=== PATIENT | female | born 1985 | race African-American/Black ===

== ENCOUNTER 2017-04-09 06:04 | Inpatient (IN) ==
[2017-04-09] MEDS ORDERED: FAMOTIDINE 20 MG/2 ML VIAL IV ONE (06:22)
[2017-04-09] MEDS ORDERED: ceFAZolin 2,000 MG in PREMIX 1 EACH IV ONE (06:22)
[2017-04-09] MEDS ORDERED: CITRIC ACID/SODIUM CITRATE 30 ML UDCUP PO ONE (06:22)
[2017-04-09] MEDS: LACTATED RINGERS 1,000 ML IV SCH ×5 (06:37→23:30)
[2017-04-09 07:03] LABS: Basophils % 0.3 % (0.0-0.8); Eosinophils # 0.1 10*3/uL (0.0-0.87); Eosinophils % 0.8 % (0.00-10.9); Hematocrit 31.2 VOL% (35.7-47.0); Hemoglobin 10.8 GM/DL (12.0-16.0); Immature Granulocytes % 0.5 %; Immature Granulocytes Absolute 0.04 #; Lymphocytes # 1.9 10*3/uL (1.4-4.0); Lymphocytes % 23.7 % (21.3-54.2); Mean Corpuscular HGB Conc 34.6 GM/DL (32-36); Mean Corpuscular Hemoglobin 34 PG (27-34); Mean Platelet Volume 10.5 FL (9.6-12.0); Monocytes # 0.8 10*3/uL (0.11-0.8); Monocytes % 10.6 % (1.7-12.7); Neutrophils # 5.1 10*3/uL (1.4-7.4); Neutrophils % 64.1 % (38.7-73.9); Platelet Count 289 T/CUMM (130-400); Red Blood Count 3.15 MC/CUMM (3.8-5.5); Red Cell Distribution Width 13.7 % (9.3-17.3); White Blood Count 7.9 T/CUMM (4-12)
[2017-04-09] MEDS ORDERED: OXYTOCIN 10 UNIT/ML VIAL IM PRN (07:33)
[2017-04-09] MEDS ORDERED: OXYTOCIN/LR 30 UNIT/1,000 ML BAG IV PRN (07:33)
[2017-04-09 07:41] LABS: Alanine Aminotransferase 27 U/L (13-56); Albumin 2.8 G/DL (3.4-5.0); Alkaline Phosphatase 148 U/L (45-117); Aspartate Amino Transferase 27 U/L (0-37); Bilirubin,Total < 0.39 MG/DL (0.2-1.0); Blood Urea Nitrogen 8 MG/DL (7-18); Calcium 8.5 MG/DL (8.5-10.1); Glucose 74 MG/DL (74-106); Osmolality,Calculated 271.7 MOS/KG (273-304); Potassium 3.7 MMOL/L (3.5-5.1); Sodium 138 MMOL/L (136-145)
[2017-04-09] MEDS ORDERED: OXYTOCIN/LR 20 UNIT/1,000 ML BAG IV ONE ×2 (08:09→10:20)
--- NOTE | 2017-04-09 08:25 | OB/GYN History & Physical ---
History of Present Illness Chief complaint: In for repeat section due to previous 2 History of present illness: Ms. Kelly is a 31 year old female 3 para 2 living 2. Her SALLY is 2016 for an estimated gestational age of 39 weeks and 1 day. She presents to the labor department for elective repeat section due to previous section 2 the risk and benefits have been thoroughly discussed with this patient and significant other, plan of care has been discussed with Dr. Robbins and all parties are in agreement plan. The patient received her care through the [facility] and she received routine care, her course was uneventful. labs: She is O+, rubella is immune , RPR is nonreactive, hepatitis B negative, HIV negative, and GBS culture negative. Review of systems is negative with exception of previous section 2. Home Medications Medication Instructions Recorded Confirmed Type Omeprazole [Omeprazole] 20 mg PO DAILY 04/13/15 04/09/17 History Loratadine [Claritin] 10 mg PO DAILY #30 tab.rapdis 11/13/15 04/09/17 Rx Allergies Allergy/AdvReac Type Severity Reaction Status Date / Time No Known Allergies Allergy Verified 11/13/15 10:43 12 point system: reviewed and no additional remarkable complaints except as stated Medical,Surgical,& Family Hx - Medical History Neurology: History of: Migraine No history of: Brain Aneurysm, Cerebral Hemorrhage, Cerebrovascular Accident , Cerebral Palsy, Dementia, Multiple Sclerosis, Parkinson's Disease, Peripheral Neuropathy, Seizures, TIA, Vertigo, Neurologocal Cancer Gastrointestinal: No history of: Bowel Obstruction, Clostridium Difficile, Crohn's Disease, Diverticulitis/ Diverticulosis, Esophageal Varices, GERD, Gastrointestinal Bleed , Hemorrhoids, Hematochezia, Hepatitis, Liver Problems, Pancreatitis, Polyps, Ulcerative Colitis, GI Problems Reproductive: History of: Abnormal Pap Smear No history of: Breast Cancer, Endometriosis, Ectopic , Ovarian Cysts , Complication, Sexually Transmitted Disorders, Reproductive Cancer, Reproductive Problems Other: History of: Miscellaneous Medical Problems (intrauterine ) - Surgical History Neurologic Surgeries: Patient denies: Brain Aneurysm, Cerebral Hemorrhage, Neurologic Surgery Abdominal Surgeries: Surgical HX of: Hernia Repair (umbilical hernia repair age 15) Patient denies: Abdominal Surgery, Appendectomy, Cholecystectomy, Colonoscopy , Gastric Bypass Surgery, EGD Reproductive Surgeries: Surgical HX of;: Section (2010), Gynecologic Surgery Patient denies;: Breast Surgery, Dilation and Curettage, Hysterectomy, Tubal Ligation - Family History Family History: Reports;: Family Cancer (mom and dad), Family Diabetes ( grandmother) Denies;: Family Anesthesia Reaction, Family Heart Disease, Family Hematology , Family Hypertension, Family Psychiatric Problems, Family Stroke, Additional Family History - Social History Smoking Status: Current some day smoker Frequency of Alcohol Use: None Type of Drug Use: Marijuana Marital Status: Single Lives With:: Significant Other Functional capacity: independent ambulation 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 General appearance: no acute distress - Antepartum / Post Antepartum Exam Cervix - Dilatation: Deferred Breast: bilateral: normal Abdomen obstetrics: Present: bowel sounds normal Vagina: Present: normal moisture Uterus exam: Present: enlarged Anus/Rectum: Present: normal perianal skin - Respiratory Respiratory exam: Present: clear to auscultation bilaterally - Cardiovascular Cardiovascular exam: Present: regular rate and rhythm - GI/Abdominal GI/Abdominal exam: Present: normal bowel sounds, soft - Extremities Exam Extremities exam: Present: normal inspection - Back Exam Back exam: Present: normal inspection - Neurological Exam Neurological exam: Present: alert, oriented X3 - Psychiatric Psychiatric exam: Present: normal affect, normal mood - Skin Skin exam: Present: normal color, warm Assessment and Plan (1) Previous section Status: Acute Assessment and plan: Admit IV fluids Informed consent and preop for repeat section Anticipate delivery of viable . Current Visit: Yes Results - Labs CBC & BMP: 04/09/17 06:43 04/09/17 06:43
[2017-04-09 09:05] LABS: Apearance,Urine CLEAR (Clear); Bilirubin,Urine Negative (Negative); Blood, Urine Negative (Negative); Glucose,Urine (UA) Negative (Negative); Ketones,Urine Negative (Negative); Mucus,Urine Occasional /LPF (Occasional); Nitrite,Urine Negative (Negative); Protein,Urine Negative; RBC,Urine 3 /HPF (0-4); Squamous Epithelial Cell,Urine Occasional /HPF (0-10); Urine Color Yellow (Yellow); Urine Specific Gravity 1.011 (1.001-1.035); Urine Urobilinogen < 2.0 EU/DL (0.2-1.0); WBC,Urine 1 /HPF (0-6)
[2017-04-09] MEDS ORDERED: ONDANSETRON 4 MG/2 ML VIAL IV PRN (10:20)
[2017-04-09] MEDS ORDERED: RHO(D) IMMUNE GLOBULIN 300 MCG SYRINGE IM ONE (10:20)
[2017-04-09] MEDS ORDERED: ACETAMINOPHEN 325 MG TABLET PO PRN (10:20)
[2017-04-09] MEDS ORDERED: fentaNYL 100 MCG/2 ML VIAL ONE (10:28)
[2017-04-09] MEDS ORDERED: MORPHINE 10 MG/10 ML VIAL ONE (10:28)
--- NOTE | 2017-04-09 10:37 | Anesthesia Post-Op ---
Anesthesia Post OP - Post Ansesthetic Evaluation Patient seen in post op: Yes Resp: within normal limits CV: within normal limits Mental: within normal limits Temp: within normal limits [id number]: within normal limits Nausea and Vomiting: within normal limits Pain: within normal limits
[2017-04-09] MEDS ORDERED: HYDROmorphone 2 MG/1 ML VIAL IV PRN (11:32)
[2017-04-09] MEDS: IBUPROFEN 800 MG TABLET PO PRN (12:51)
--- NOTE | 2017-04-09 12:53 | Operative Note ---
Date of procedure: 04/09/17 Procedure: Preoperative diagnosis: Term 39 weeks, elective section bilateral tubal ligation Postoperative diagnosis: Same Anesthesia:[] Regional Estimated blood loss: [] 300 Surgeon: Dr. Robbins Findings: [] Finding was a 7 lbs. 2 oz. , female, delivery time was at 944, Apgars was 8 at 1 minute, 9 at 5 minutes, blood gas and cord blood obtained. Complications: Procedure: Low transverse section, and bilateral tubal ligation The patient was taken to the operating suite heart tones were obtained prior to and after regional anesthesia was obtained. She was placed in supine position her abdomen was prepped and draped in usual manner for major abdominal surgery. Through an abdominal incision the skin, subcutaneous, fascial layer and peritoneal the abdomen was entered. The bladder flap was created and a low transverse incision was made.. Fluid was clear and normal amount X, Apgars, the placenta was delivered and sent to lab for further evaluation. Injected with intrauterine Pitocin. The first layer of the uterus was closed with #1 Vicryl in a continuous locking manner. Close to imbricate the first layer with #1 Vicryl. The peritoneum was approximated with #2-0 Vicryl.[Fallopian tube was grasped with a Ok clamp into the best reason mesosalpinx was perforated. Proximal distal end of tube was ligated segment in between was excised. Cut edges were then cauterized] All the last sponges and instruments were accounted for -2.) #2-0 Vicryl. Fascia was approximated with #0-0 Maxon.. The skin was approximated with nilesh. She tolerated procedure well and was taken to recovery room in stable condition. Surgeon / Physician: Gloria Robbins Results - Labs CBC & BMP: 04/09/17 06:43 04/09/17 06:43 Discharge Plan - Discharge Medications No Action Omeprazole [Omeprazole] 20 mg PO DAILY Loratadine [Claritin] 10 mg PO DAILY #30 tab.rapdis - Follow Up or Referral - Forms/Instructions
[2017-04-09 18:01] LABS: Basophils % 0.1 % (0.0-0.8); Hemoglobin 8.2 GM/DL (12.0-16.0); Immature Granulocytes % 0.7 %; Lymphocytes # 1.4 10*3/uL (1.4-4.0); Lymphocytes % 9.6 % (21.3-54.2); Mean Corpuscular HGB Conc 34.2 GM/DL (32-36); Mean Corpuscular Hemoglobin 34 PG (27-34); Mean Corpuscular Volume 99.6 FL (87-102); Mean Platelet Volume 10.7 FL (9.6-12.0); Monocytes # 0.9 10*3/uL (0.11-0.8); Monocytes % 5.9 % (1.7-12.7); Neutrophils # 12.5 10*3/uL (1.4-7.4); Neutrophils % 83.7 % (38.7-73.9); Platelet Count 238 T/CUMM (130-400); Red Blood Count 2.41 MC/CUMM (3.8-5.5); Red Cell Distribution Width 13.4 % (9.3-17.3)
[2017-04-09] MEDS: DOCUSATE SODIUM 100 MG CAPSULE PO SCH (23:15)
[2017-04-10 05:00] LABS: Basophils % 0.1 % (0.0-0.8); Eosinophils # 0.1 10*3/uL (0.0-0.87); Eosinophils % 0.5 % (0.00-10.9); Hematocrit 20.3 VOL% (35.7-47.0); Hemoglobin 6.6 GM/DL (12.0-16.0); Immature Granulocytes % 0.6 %; Immature Granulocytes Absolute 0.09 #; Lymphocytes # 2.1 10*3/uL (1.4-4.0); Lymphocytes % 13.1 % (21.3-54.2); Mean Corpuscular HGB Conc 32.5 GM/DL (32-36); Mean Corpuscular Hemoglobin 33 PG (27-34); Mean Platelet Volume 10.4 FL (9.6-12.0); Monocytes # 1.2 10*3/uL (0.11-0.8); Monocytes % 7.8 % (1.7-12.7); Neutrophils # 12.4 10*3/uL (1.4-7.4); Neutrophils % 77.9 % (38.7-73.9); Platelet Count 204 T/CUMM (130-400); Red Blood Count 1.99 MC/CUMM (3.8-5.5); Red Cell Distribution Width 13.6 % (9.3-17.3)
[2017-04-10] MEDS ORDERED: SODIUM CHLORIDE 0.9% 250 ML IV PRN (06:54)
[2017-04-10] MEDS: MULTIVITAMIN (PRENATAL) TABLET PO SCH (08:29)
[2017-04-10] MEDS: DOCUSATE SODIUM 100 MG CAPSULE PO SCH ×2 (08:29→21:08)
[2017-04-10] MEDS: IBUPROFEN 800 MG TABLET PO PRN ×2 (08:30→23:01)
[2017-04-10] MEDS: SIMETHICONE CHEW 80 MG TABLET PO PRN (08:42)
--- NOTE | 2017-04-10 09:46 | OB/GYN Progress Note ---
Assessment and Plan (1) Previous section Status: Acute Assessment and plan: Admit IV fluids Informed consent and preop for repeat section Anticipate delivery of viable infant. Current Visit: Yes (2) Status post repeat low transverse section Status: Acute Assessment and plan: Initiate routine postop orders. 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 Bonding well with . Exam STAGE RIGGER - Constitutional Vitals: Vital Signs Temp Pulse Pulse Resp BP BP Pulse Ox 04/10/17 09:12 97.4 F L 90 18 102/56 04/10/17 08:42 97.8 F 92 H 18 137/79 04/10/17 08:37 97.7 F 90 18 140/75 04/10/17 08:32 97.7 F 95 H 18 133/74 04/10/17 08:24 97.7 F 95 H 18 141/85 04/10/17 07:30 97.8 F 86 18 145/79 98 04/10/17 03:00 18 04/09/17 15:30 97.0 F L 75 18 119/71 99 04/09/17 14:30 71 20 114/58 97 04/09/17 13:30 78 20 124/67 97 04/09/17 13:00 73 20 120/96 97 04/09/17 12:30 96.6 F L 77 20 128/91 98 General appearance: no acute distress - Antepartum / Post Post Exam Breast: bilateral: normal Abdomen obstetrics: Present: bowel sounds normal Vagina: Present: normal moisture, discharge (Light lochia rubra) Uterus exam: Present: enlarged (Fundus firm and midline) Anus/Rectum: Present: normal perianal skin - Respiratory Respiratory exam: Present: clear to auscultation bilaterally - Cardiovascular Cardiovascular exam: Present: regular rate and rhythm - GI/Abdominal GI/Abdominal exam: Present: normal bowel sounds, soft - Extremities Exam Extremities exam: Present: normal inspection - Back Exam Back exam: Present: normal inspection - Neurological Exam Neurological exam: Present: alert, oriented X3 - Psychiatric Psychiatric exam: Present: normal affect, normal mood - Skin Skin exam: Present: normal color, warm Results - Labs CBC & BMP: 04/10/17 04:40 04/09/17 06:43
[2017-04-10] MEDS: FERROUS SULFATE 325 MG TABLET PO SCH ×2 (11:48→21:08)
[2017-04-10 15:41] LABS: Hematocrit 28.8 VOL% (35.7-47.0); Hemoglobin 9.7 GM/DL (12.0-16.0)
[2017-04-10] MEDS: MAGNESIUM HYDROXIDE SUSP 30 ML UDCUP PO PRN (21:08)
[2017-04-11] MEDS: SIMETHICONE CHEW 80 MG TABLET PO PRN (08:38)
[2017-04-11] MEDS: MULTIVITAMIN (PRENATAL) TABLET PO SCH (08:38)
[2017-04-11] MEDS: DOCUSATE SODIUM 100 MG CAPSULE PO SCH ×2 (08:38→20:26)
[2017-04-11] MEDS: MAGNESIUM HYDROXIDE SUSP 30 ML UDCUP PO PRN ×2 (08:38→20:26)
[2017-04-11] MEDS: FERROUS SULFATE 325 MG TABLET PO SCH ×2 (09:31→20:26)
[2017-04-11] MEDS: IBUPROFEN 800 MG TABLET PO PRN (20:26)
[2017-04-12] MEDS ORDERED: BUTALBITAL/ACETAMIN/CAFFEINE 50-325-40 MG TABLET PO PRN ×3 (07:32→21:08)
[2017-04-12] MEDS ORDERED: SUMAtriptan 6 MG/0.5 ML VIAL SUBCUT ONE (08:00)
[2017-04-12] MEDS: MULTIVITAMIN (PRENATAL) TABLET PO SCH (08:39)
[2017-04-12] MEDS: DOCUSATE SODIUM 100 MG CAPSULE PO SCH ×2 (08:39→21:17)
[2017-04-12] MEDS: FERROUS SULFATE 325 MG TABLET PO SCH ×2 (08:39→21:17)
--- NOTE | 2017-04-12 10:01 | OB/GYN Progress Note ---
Assessment and Plan (1) Previous section Status: Acute Assessment and plan: Admit IV fluids Informed consent and preop for repeat section Anticipate delivery of viable infant. Current Visit: Yes (2) Status post repeat low transverse section Status: Acute Assessment and plan: Initiate routine postop orders. 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 Exam W[employer] ARE[employer] NETWORK SYSTEMS ADMINISTRATOR - Constitutional Vitals: Vital Signs Temp Pulse Resp BP Pulse Ox 04/12/17 07:40 98.2 F 79 20 150/82 97 04/12/17 05:00 18 04/12/17 04:00 97.6 F 78 18 143/79 98 04/12/17 03:00 18 04/12/17 00:00 97.5 F L 88 18 132/72 99 04/11/17 20:00 98.0 F 81 20 135/79 98 04/11/17 15:39 97.2 F L 86 18 138/73 98 04/11/17 11:33 97.8 F 87 20 136/75 98 General appearance: no acute distress - Gyencological / Post Surgical Gynocological Exam Lungs: bilateral: normal Chest: Normal S1, Normal S2 Extremities W[employer]WORK SYSTEMS ADMINISTRATOR: Present: normal Abdomen obstetrics progress note: Present: normal appearance Incision OB: Present: normal, intact - Respiratory Respiratory exam: Present: clear to auscultation bilaterally - Cardiovascular Cardiovascular exam: Present: regular rate and rhythm - GI/Abdominal GI/Abdominal exam: Present: normal bowel sounds, soft - Extremities Exam Extremities exam: Present: normal inspection - Back Exam Back exam: Present: normal inspection - Neurological Exam Neurological exam: Present: alert, oriented X3 - Psychiatric Psychiatric exam: Present: normal affect, normal mood - Skin Skin exam: Present: normal color, warm Results - Labs CBC & BMP: 04/10/17 15:27 04/09/17 06:43
--- NOTE | 2017-04-12 10:03 | Discharge Summary ---
Hospital Course - Hospital Course Hospital Course: Ms. Kelly presented to the labor department for repeat section due to previous section. She had her surgery and delivered a viable with no complications. She was anemic and did receive 2 units of packed RBCs because of this. She has since stabilized. Her vital signs and lab values are stable. Her incisions well approximated without signs of infection. She is voiding without difficulty. Her fundus is firm and midline. Her bowel sounds are positive she has had a normal bowel movement. Contraception options have been discussed with this patient and she will decide on a method at her visit. She will be discharged home prescriptions for pain and follow -up appointment in our office. Diagnosis - Discharge Diagnosis (1) Previous section Status: Acute (2) Status post repeat low transverse section Status: Acute Specialty Discharge - Follow Up or Referrals Follow up with: Gloria Robbins MD [Physician] - Discharge Plan - Discharge Data Disposition: Disch To Home/Self Care Condition at Discharge: Stable Discharge Diet: advance to your usual diet, regular diet Activity: increase activity as tolerated, no lifting, no prolonged standing Weight Bearing at Discharge: weight bear as tolerated Contact your physician if you experience:: fever over 101, pain uncontrolled by pain medications - Discharge Medications New Ferrous Sulfate Tab [Feosol Original Tab] 325 mg PO BID #60 tablet HYDROcodone/ACETAMIN 5-325 [[place] 5-325] 2 tablet PO Q6H PRN #30 tablet PRN Reason: Pain Severe (8-10) Ibuprofen Tab [Motrin Tab] 800 mg PO Q8H PRN #30 tablet PRN Reason: Pain Severe (8-10) No Action Omeprazole [Omeprazole] 20 mg PO DAILY Loratadine [Claritin] 10 mg PO DAILY #30 tab.rapdis - Follow Up or Referral - Forms/Instructions Exam - Constitutional Vitals: Period Temp Pulse Resp BP Sys/Weiss Pulse Ox Last 24 Hr 97.2 F-98.2 F 78-88 18-20 132-150/72-82 97-99 General appearance: no acute distress - Respiratory Respiratory exam: Present: clear to auscultation bilaterally - Cardiovascular Cardiovascular exam: Present: regular rate and rhythm - GI/Abdominal GI/Abdominal exam: Present: normal bowel sounds, soft - Extremities Exam Extremities exam: Present: normal inspection - Neurological Exam Neurological exam: Present: alert, oriented X3 - Psychiatric Psychiatric exam: Present: normal affect, normal mood - Skin Skin exam: Present: normal color, warm DS: Provider Date of admission: 04/09/17 06:22 Primary care physician: . No PCP Attending physician on admission: Gloria Robbins MD Consults: 04/09/17 06:22 Consult to Anesthesiology [CONS] Routine Consulting Provider: Reason for Anesthesiology: Pre-op Clearance 04/09/17 10:20 Consult to Microwave Engineer [CONS] Routine Consult Microwave Engineer: Breast Feeding 04/12/17 06:22 Consult to Anesthesiology [CONS] Routine Consulting Provider: Reason for Anesthesiology: Epidural Blood Patch Consult Comment: pt c/o headache relieved when lying down, & back/neck pain Discharging clinician: Marley Phoenix CNM Expected date of discharge: 04/12/17
[2017-04-12] MEDS: IBUPROFEN 800 MG TABLET PO PRN (10:38)
[2017-04-12] MEDS ORDERED: SODIUM CHLORIDE 0.9% 1,000 ML IV ONE (12:29)
[2017-04-12] MEDS ORDERED: MEPERIDINE 50 MG/1 ML VIAL IV ONE (12:29)
[2017-04-12] MEDS ORDERED: PROMETHAZINE 25 MG/1 ML VIAL IM ONE (12:30)
[2017-04-12] MEDS ORDERED: MEPERIDINE 50 MG/1 ML VIAL IV PRN (21:04)
[2017-04-12] MEDS ORDERED: PROMETHAZINE 25 MG/1 ML VIAL IM PRN (21:06)
[2017-04-12] MEDS ORDERED: PROMETHAZINE 25 MG/1 ML VIAL ONE (21:11)
[2017-04-13] MEDS: IBUPROFEN 800 MG TABLET PO PRN (02:11)
[2017-04-13] MEDS: DOCUSATE SODIUM 100 MG CAPSULE PO SCH (10:05)
[2017-04-13] MEDS: FERROUS SULFATE 325 MG TABLET PO SCH (10:05)
[2017-04-13] MEDS: MULTIVITAMIN (PRENATAL) TABLET PO SCH (10:05)
[2017-04-13 10:28] VITALS: BP 139/57
--- NOTE | 2017-04-13 11:55 | Event Note ---
Postoperative da #2, patient's discharge summary was canceled on her second day. She experienced a spinal headache which subsequently needed IV fluids Imitrex, analgesic and rest. On her third postoperative day she is ambulating well without any complaints and will be discharged and advised follow-up in 2 weeks.
== END 2017-04-13 12:30 | disposition home or self-care (01) | DRG 540 ==
LOC: N.LDOUT 06:04 → N.LD 06:09 → N.OB 12:59
PROVIDERS: ADMIT Obstetrics & Gynecology; ATTEND Obstetrics & Gynecology